=== PATIENT | female | born 1980 | race Caucasian/White ===

== ENCOUNTER 2017-01-03 20:54 | Emergency (ER) | payer MEDICAID ==
[~2017-01-03] VITALS: Ht 157.5 cm; Wt 105.0 kg
[~2017-01-03 20:54] MED LIST: ADV25050 INHALATION; ALBU2.5V3 NEB; PRED20TA PO; PRED50TA PO
[2017-01-03 20:59] VITALS: Ht 157.5 cm; Wt 105.0 kg
[2017-01-03] MEDS ORDERED: ONDANSETRON (ODT) 4 MG TAB ODT STA (21:11)
[2017-01-03] MEDS ORDERED: HYDROCODONE/APAP (10/325) TAB PO ONE (21:30)
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
[2017-01-03] MEDS ORDERED: KETOROLAC 30 MG INJ IM STA (22:10)
[2017-01-03] MEDS ORDERED: HYDR-902 PO (22:11)
[2017-01-03] MEDS ORDERED: IBUP-1542 PO (22:11)
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
[2017-01-03 22:57] VITALS: BP 154/89; PULSE 78; RESP 18; TEMP 98
== END 2017-01-03 22:58 | disposition home or self-care (01) ==
LOC: E/R 20:54
DX: S19.9XXA Unspecified injury of neck, initial encounter (principal); S09.90XA Unspecified injury of head, initial encounter; J45.909 Unspecified asthma, uncomplicated; R51 Headache; R11.10 Vomiting, unspecified; V49.50XA Passenger injured in collision with unspecified motor vehicles in traffic accident, initial encounter
CPT/HCPCS: 70450; 72125; 96372; J1885; Z7502; Z7610

== ENCOUNTER 2017-12-10 23:05 | Emergency (ER) | END 2017-12-11 04:31 | disposition home or self-care (01) ==

== ENCOUNTER 2017-12-24 19:30 | Emergency (ER) | END 2017-12-24 22:10 | disposition home or self-care (01) ==